=== PATIENT | male | born 1970 | race Caucasian/White ===

== ENCOUNTER 2021-10-07 13:18 | Inpatient (IN) ==
[2021-10-07 14:24] LABS: Basophils % 0.2 %; Eosinophils # 0.1 K/mcL (0.0-0.6); Hematocrit 34.3 % (37.5-50.1); Hemoglobin 11.7 g/dL (12.9-16.9); Immature Granulocytes % 0.3 % (0-4); Lymphocytes # 0.4 K/mcL (0.6-4.6); Lymphocytes % 6.4 %; Mean Corpuscular HGB Conc 34.1 g/dL (31.6-35.5); Mean Corpuscular Hemoglobin 28.1 pg (28.0-33.3); Mean Corpuscular Volume 82.5 fL (83.0-100.0); Mean Platelet Volume 9.2 fL (9.4-12.4); Monocytes # 0.7 K/mcL (0.0-1.3); Monocytes % 12.1 %; Neutrophils # 4.8 K/mcL (1.6-8.9); Platelet Count 230 K/mcL (140-400); Red Blood Count 4.16 M/mcL (4.19-5.50); Red Cell Distribution Width 13.4 % (11.5-14.5)
[2021-10-07 14:43] LABS: Alanine Aminotransferase 15 Units/L (7-52); Albumin/Globulin Ratio 1.4 (1.1-2.2); Alkaline Phosphatase 64 Units/L (34-104); Aspartate Amino Transferase 20 Units/L (13-39); BUN/Creatinine Ratio 25 (6-26); Bilirubin,Total 0.5 mg/dL (0.3-1.0); Blood Urea Nitrogen 18 mg/dL (6-20); Calcium 8.9 mg/dL (8.6-10.3); Carbon Dioxide 27 mEq/L (23-29); Chloride 90 mEq/L (98-107); Globulin 2.8 g/dL (2.4-3.5); Glucose 110 mg/dL (70-105); Lipase 11 Units/L (11-82); Magnesium 1.9 mg/dL (1.6-2.6); Osmolality,Calculated 259 (280-300); Potassium 4.4 mEq/L (3.5-5.1); Sodium 123 mEq/L (136-145); Total Protein 6.8 g/dL (6.4-8.9); eGFR For African Americans > 60 (> 60); eGFR For Non-African Americans > 60 (> 60)
[2021-10-07] MEDS ORDERED: Isovue-370 500 ML BOTTLE IVP ONE (14:48)
[2021-10-07] MEDS ORDERED: Gadolinium Contrast Agent (WT Based) IV PRN (14:57)
[2021-10-07 15:05] LABS: Bilirubin,Urine Negative (Negative); Blood,Urine Negative (Negative); Clarity,Urine Clear (Clear); Color,Urine Light-Yellow (Yellow); Glucose,Urine (UA) Normal (Normal); Ketones,Urine 10 mg/dL (Negative); Leukocyte Esterase,Urine Negative (Negative); Mucus,Urine Few per lpf (None-Few); Nitrite,Urine Negative (Negative); Protein,Urine 50 mg/dL (Neg-Trace); RBC,Urine 0-3 per hpf (0-3); Specific Gravity,Urine 1.023 (1.010-1.025); Urobilinogen,Urine Normal (Normal); WBC,Urine 0-3 per hpf (0-3)
[2021-10-07 16:51] LABS: Sodium, Urine 159.8 mEq/L
[2021-10-07 16:53] LABS: Bacteria,Urine Few per hpf (None-Few)
[2021-10-07] MEDS ORDERED: Naloxone 0.4 MG/ML INJ IVP PRN (17:54)
[2021-10-07] MEDS ORDERED: Ondansetron 4 MG/2 ML VIAL IVP PRN (17:54)
[2021-10-07] MEDS ORDERED: Acetaminophen 325 MG TABLET PO PRN (17:54)
[2021-10-07] MEDS ORDERED: Dexamethasone Sodium Phos/PF 10 MG/ML VIAL IVP ONE (19:13)
[2021-10-07] MEDS: *HR* OxyCODONE Immed Rel 5 MG TABLET PO PRN (20:41)
[2021-10-07] MEDS: Gabapentin 300 MG CAPSULE PO SCH (20:42)
[2021-10-07] MEDS: Hyoscyamine SL 0.125 MG TAB.SUBL PO SCH (20:55)
[2021-10-07] MEDS ORDERED: Hyoscyamine SL 0.125 MG TAB.SUBL PO SCH (21:00)
[2021-10-08] MEDS: Hyoscyamine SL 0.125 MG TAB.SUBL PO SCH ×4 (03:01→20:14)
[2021-10-08 03:21] LABS: Hematocrit 35.3 % (37.5-50.1); Hemoglobin 12.4 g/dL (12.9-16.9); Immature Granulocytes % 0.3 % (0-4); Lymphocytes # 0.2 K/mcL (0.6-4.6); Lymphocytes % 3.8 %; Mean Corpuscular HGB Conc 35.1 g/dL (31.6-35.5); Mean Corpuscular Hemoglobin 28.4 pg (28.0-33.3); Mean Platelet Volume 9.2 fL (9.4-12.4); Monocytes # 0.1 K/mcL (0.0-1.3); Monocytes % 0.9 %; Neutrophils # 5.5 K/mcL (1.6-8.9); Platelet Count 254 K/mcL (140-400); Red Blood Count 4.36 M/mcL (4.19-5.50); Red Cell Distribution Width 13.2 % (11.5-14.5); White Blood Count 5.8 K/mcL (4.3-11.1)
[2021-10-08 03:39] LABS: BUN/Creatinine Ratio 21 (6-26); Blood Urea Nitrogen 11 mg/dL (6-20); Calcium 8.7 mg/dL (8.6-10.3); Carbon Dioxide 24 mEq/L (23-29); Chloride 89 mEq/L (98-107); Glucose 154 mg/dL (70-105); Magnesium 2.1 mg/dL (1.6-2.6); Osmolality,Calculated 252 (280-300); Sodium 120 mEq/L (136-145); eGFR For African Americans > 60 (> 60); eGFR For Non-African Americans > 60 (> 60)
[2021-10-08] MEDS: *HR* Heparin 5,000 UNIT/ML VIAL SQ SCH ×2 (06:27→17:53)
[2021-10-08] MEDS ORDERED: 0.9 % Sodium Chloride 1,000 ML IVC SCH (07:45)
[2021-10-08] MEDS: Gabapentin 300 MG CAPSULE PO SCH ×3 (08:54→20:14)
[2021-10-08] MEDS: polyethylene glycoL 3350 17 GM POWD.PACK PO SCH ×2 (08:55→20:36)
[2021-10-08] MEDS: dexAMETHasone 4 MG TABLET PO SCH ×3 (09:21→20:14)
[2021-10-08 12:05] LABS: BUN/Creatinine Ratio 25 (6-26); Blood Urea Nitrogen 13 mg/dL (6-20); Calcium 8.4 mg/dL (8.6-10.3); Carbon Dioxide 25 mEq/L (23-29); Chloride 88 mEq/L (98-107); Glucose 168 mg/dL (70-105); Osmolality,Calculated 252 (280-300); Potassium 4.1 mEq/L (3.5-5.1); Sodium 119 mEq/L (136-145); eGFR For African Americans > 60 (> 60); eGFR For Non-African Americans > 60 (> 60)
[2021-10-09] MEDS: *HR* OxyCODONE Immed Rel 5 MG TABLET PO PRN ×2 (00:32→08:32)
[2021-10-09] MEDS: Hyoscyamine SL 0.125 MG TAB.SUBL PO SCH ×4 (02:53→20:33)
[2021-10-09] MEDS: dexAMETHasone 4 MG TABLET PO SCH ×4 (02:53→20:33)
[2021-10-09 03:25] LABS: Hematocrit 36.1 % (37.5-50.1); Hemoglobin 12.2 g/dL (12.9-16.9); Immature Granulocytes % 0.3 % (0-4); Lymphocytes # 0.5 K/mcL (0.6-4.6); Lymphocytes % 5.3 %; Mean Corpuscular HGB Conc 33.8 g/dL (31.6-35.5); Mean Corpuscular Hemoglobin 27.3 pg (28.0-33.3); Mean Corpuscular Volume 80.8 fL (83.0-100.0); Mean Platelet Volume 9.3 fL (9.4-12.4); Monocytes # 0.7 K/mcL (0.0-1.3); Monocytes % 8.1 %; Neutrophils # 7.5 K/mcL (1.6-8.9); Platelet Count 333 K/mcL (140-400); Red Blood Count 4.47 M/mcL (4.19-5.50); Red Cell Distribution Width 13.6 % (11.5-14.5); Segmented Neutrophils % 86.3 %; White Blood Count 8.7 K/mcL (4.3-11.1)
[2021-10-09 03:41] LABS: BUN/Creatinine Ratio 29 (6-26); Blood Urea Nitrogen 16 mg/dL (6-20); Calcium 8.7 mg/dL (8.6-10.3); Carbon Dioxide 25 mEq/L (23-29); Chloride 91 mEq/L (98-107); Glucose 132 mg/dL (70-105); Osmolality,Calculated 259 (280-300); Potassium 4.3 mEq/L (3.5-5.1); Sodium 123 mEq/L (136-145); eGFR For African Americans > 60 (> 60); eGFR For Non-African Americans > 60 (> 60)
[2021-10-09] MEDS: *HR* Heparin 5,000 UNIT/ML VIAL SQ SCH ×2 (05:04→17:17)
[2021-10-09] MEDS: Gabapentin 300 MG CAPSULE PO SCH ×3 (08:31→20:33)
[2021-10-09] MEDS: polyethylene glycoL 3350 17 GM POWD.PACK PO SCH (08:31)
[2021-10-10] MEDS: *HR* OxyCODONE Immed Rel 5 MG TABLET PO PRN ×3 (00:55→23:08)
[2021-10-10 04:24] LABS: BUN/Creatinine Ratio 27 (6-26); Blood Urea Nitrogen 18 mg/dL (6-20); Calcium 8.8 mg/dL (8.6-10.3); Carbon Dioxide 28 mEq/L (23-29); Chloride 94 mEq/L (98-107); Glucose 130 mg/dL (70-105); Osmolality,Calculated 270 (280-300); Potassium 4.5 mEq/L (3.5-5.1); Sodium 128 mEq/L (136-145); eGFR For African Americans > 60 (> 60); eGFR For Non-African Americans > 60 (> 60)
[2021-10-10] MEDS: *HR* Heparin 5,000 UNIT/ML VIAL SQ SCH ×2 (06:29→18:12)
[2021-10-10] MEDS: dexAMETHasone 4 MG TABLET PO SCH ×4 (06:29→21:13)
[2021-10-10] MEDS: Hyoscyamine SL 0.125 MG TAB.SUBL PO SCH ×4 (06:29→21:12)
[2021-10-10] MEDS: Gabapentin 300 MG CAPSULE PO SCH ×3 (09:56→21:13)
[2021-10-10] MEDS: polyethylene glycoL 3350 17 GM POWD.PACK PO SCH (09:56)
[2021-10-10] MEDS: Melatonin 3 MG TABLET PO PRN (23:08)
[2021-10-11] MEDS: dexAMETHasone 4 MG TABLET PO SCH ×4 (03:04→21:17)
[2021-10-11] MEDS: Hyoscyamine SL 0.125 MG TAB.SUBL PO SCH ×4 (03:04→21:17)
[2021-10-11 03:46] LABS: BUN/Creatinine Ratio 40 (6-26); Blood Urea Nitrogen 27 mg/dL (6-20); Calcium 9.3 mg/dL (8.6-10.3); Carbon Dioxide 29 mEq/L (23-29); Chloride 94 mEq/L (98-107); Glucose 130 mg/dL (70-105); Osmolality,Calculated 275 (280-300); Potassium 4.5 mEq/L (3.5-5.1); Sodium 129 mEq/L (136-145); eGFR For African Americans > 60 (> 60); eGFR For Non-African Americans > 60 (> 60)
[2021-10-11] MEDS: *HR* Heparin 5,000 UNIT/ML VIAL SQ SCH ×2 (05:04→18:00)
[2021-10-11] MEDS ORDERED: Gadolinium Contrast Agent (WT Based) IV PRN (08:22)
[2021-10-11] MEDS: Gabapentin 300 MG CAPSULE PO SCH ×3 (09:11→21:17)
[2021-10-11] MEDS: polyethylene glycoL 3350 17 GM POWD.PACK PO SCH (09:18)
[2021-10-11] MEDS ORDERED: GADOBUTROL 30 MMOL/30 ML VIAL IVP ONE (11:08)
[2021-10-11] MEDS: Melatonin 3 MG TABLET PO PRN (21:17)
[2021-10-12] MEDS: Hyoscyamine SL 0.125 MG TAB.SUBL PO SCH ×4 (03:43→21:39)
[2021-10-12] MEDS: dexAMETHasone 4 MG TABLET PO SCH ×4 (03:43→23:57)
[2021-10-12] MEDS: *HR* Heparin 5,000 UNIT/ML VIAL SQ SCH ×2 (06:22→18:00)
[2021-10-12 07:50] LABS: BUN/Creatinine Ratio 48 (6-26); Blood Urea Nitrogen 29 mg/dL (6-20); Calcium 8.9 mg/dL (8.6-10.3); Carbon Dioxide 28 mEq/L (23-29); Chloride 93 mEq/L (98-107); Glucose 124 mg/dL (70-105); Osmolality,Calculated 269 (280-300); Potassium 4.2 mEq/L (3.5-5.1); Sodium 126 mEq/L (136-145); eGFR For African Americans > 60 (> 60); eGFR For Non-African Americans > 60 (> 60)
[2021-10-12] MEDS: Gabapentin 300 MG CAPSULE PO SCH ×3 (08:27→21:39)
[2021-10-12] MEDS: polyethylene glycoL 3350 17 GM POWD.PACK PO SCH (08:27)
[2021-10-12] MEDS: Melatonin 3 MG TABLET PO PRN (23:59)
[2021-10-13] MEDS: Hyoscyamine SL 0.125 MG TAB.SUBL PO SCH ×3 (03:03→15:16)
[2021-10-13 03:27] LABS: Hematocrit 37.4 % (37.5-50.1); Hemoglobin 12.5 g/dL (12.9-16.9); Mean Corpuscular HGB Conc 33.4 g/dL (31.6-35.5); Mean Corpuscular Hemoglobin 27.3 pg (28.0-33.3); Mean Corpuscular Volume 81.7 fL (83.0-100.0); Mean Platelet Volume 8.7 fL (9.4-12.4); Platelet Count 295 K/mcL (140-400); Red Blood Count 4.58 M/mcL (4.19-5.50); Red Cell Distribution Width 13.7 % (11.5-14.5); White Blood Count 7.9 K/mcL (4.3-11.1)
[2021-10-13 03:44] LABS: BUN/Creatinine Ratio 44 (6-26); Blood Urea Nitrogen 25 mg/dL (6-20); Calcium 8.6 mg/dL (8.6-10.3); Carbon Dioxide 27 mEq/L (23-29); Chloride 90 mEq/L (98-107); Glucose 119 mg/dL (70-105); Osmolality,Calculated 266 (280-300); Potassium 4.1 mEq/L (3.5-5.1); Sodium 125 mEq/L (136-145); eGFR For African Americans > 60 (> 60); eGFR For Non-African Americans > 60 (> 60)
[2021-10-13] MEDS: *HR* Heparin 5,000 UNIT/ML VIAL SQ SCH ×2 (05:46→14:42)
[2021-10-13] MEDS: polyethylene glycoL 3350 17 GM POWD.PACK PO SCH (08:58)
[2021-10-13] MEDS: Gabapentin 300 MG CAPSULE PO SCH ×2 (08:58→15:16)
[2021-10-13] MEDS: dexAMETHasone 4 MG TABLET PO SCH ×2 (08:58→15:16)
[2021-10-13 16:16] VITALS: BP 147/96; PULSE 94; TEMP 98.1; O2SAT 99
== END 2021-10-13 19:07 | disposition hospice, home (50) | DRG 41 ==
LOC: EMEROOARM 13:18 → 2ANU 13:18 → SUATTDRO 18:12 → 2ANU 19:52 → SUATTDRO 10-08 14:04
PROVIDERS: ADMIT Internal Medicine; ATTEND Family Medicine